=== PATIENT | female | born 1980 | race Two or more races ===

== ENCOUNTER 2017-09-17 07:50 | Outpatient (CLI) | payer OTHER | END 2017-09-17 07:58 | disposition home or self-care (01) | LOC: SONOGRAMA 07:50 | DX: E04.1 Nontoxic single thyroid nodule (principal) ==

== ENCOUNTER 2017-10-09 08:24 | Outpatient (CLI) | payer OTHER | END 2017-10-09 08:49 | disposition home or self-care (01) | LOC: RX STUDY 08:24 | DX: R13.19 Other dysphagia (principal); E04.1 Nontoxic single thyroid nodule ==